=== PATIENT | male | born 1975 | race Caucasian/White ===

== ENCOUNTER → 2018-12-15 20:52 | Outpatient (CLI) | payer MEDICAID, SELFPAY ==
[2018-12-10 09:30] VITALS: BMI 38.1
== END ==
PROVIDERS: Referring Provider Internal Medicine Critical Care Medicine; Visit Provider Internal Medicine Critical Care Medicine
DX: G47.33 Obstructive sleep apnea (adult) (pediatric) (principal)
CPT/HCPCS: 95811